=== PATIENT | male | born 1950 | race Asian ===

== ENCOUNTER 2022-05-11 11:58 | Inpatient (IN) | payer BC ==
[~2022-05-11] VITALS: Ht 167.6 cm; Wt 63.5 kg
[2022-05-11 12:06] VITALS: BP_SYST 101
[2022-05-11] MEDS ORDERED: D5/0.45 NS 1,000 ML IV ONE (12:15)
[2022-05-11 12:38] LABS: BASOPHILS # (AUTO) 0.1 K/uL (0.0-0.2); EOSINOPHILS # (AUTO) 0.1 K/uL (0.0-0.4); EOSINOPHILS % (AUTO) 2.2 % (0.0-4.0); HEMATOCRIT 32.9 % (36-54); HEMOGLOBIN 10.9 g/dL (14.0-18.0); LYMPHOCYTES # (AUTO) 0.9 K/uL (1.0-5.5); MEAN CORPUSCULAR HEMOGLOBIN 34 pg (27-31); MEAN CORPUSCULAR HGB CONC 33 % (32-36); MEAN CORPUSCULAR VOLUME 102 fL (79.0-98.0); MONOCYTES # (AUTO) 0.5 K/uL (0.0-1.0); MONOCYTES % (AUTO) 7.7 % (1.7-9.3); NEUTROPHILS # (AUTO) 4.5 K/uL (1.8-7.7); NEUTROPHILS % (AUTO) 74.1 % (40.0-70.0); PLATELET COUNT (AUTO) 58 K/uL (130-430); RED BLOOD CELL COUNT(AUTO) 3.23 MIL/uL (4.2-6.2); RED CELL DISTRIBUTION WIDTH 18.7 % (9.0-15.0); WHITE BLOOD COUNT (AUTO) 6.1 K/uL (4.8-10.8)
[2022-05-11 12:51] LABS: CALCIUM 8.7 mg/dL (8.4-11.0); CREATININE 5.46 mg/dL (0.55-1.30)
[2022-05-11 13:00] LABS: ALBUMIN 2.8 g/dL (3.4-4.8); TOTAL BILIRUBIN 1.7 mg/dL (0.0-1.0)
[2022-05-11 13:04] LABS: INR 1.3 (0.80-1.20); PROTHROMBIN TIME 13.8 SECS (9.5-12.5)
[2022-05-11] MEDS ORDERED: DEXTROSE 50% JECT 50 ML DISP.SYRIN IVP ONE (13:45)
[2022-05-11] MEDS: D10W 250 ML IV SCH (13:48)
[2022-05-11] MEDS ORDERED: D5W 1,000 ML IV PRN (14:00)
[2022-05-11] MEDS ORDERED: ONDANSETRON HCL 4 MG/2 ML VIAL IVP PRN (14:00)
[2022-05-11] MEDS ORDERED: BUPR-120 PO (15:25)
[2022-05-11] MEDS ORDERED: APIX2.5T PO (15:25)
[2022-05-11] MEDS ORDERED: LOPE2CAP PO (15:25)
[2022-05-11] MEDS ORDERED: LIP20 PO (15:25)
[2022-05-11] MEDS ORDERED: ASPI-1393 PO (15:25)
[2022-05-11] MEDS ORDERED: ALBMDI INH (15:25)
[2022-05-11] MEDS ORDERED: CARV12.548 PO (15:25)
[2022-05-11] MEDS ORDERED: ISOS30TA85 PO (15:25)
[2022-05-11] MEDS ORDERED: NITSL SL (15:25)
[2022-05-11] MEDS ORDERED: FURO80TA86 PO (15:25)
[2022-05-11] MEDS ORDERED: NEPH PO (15:25)
[2022-05-11] MEDS ORDERED: TRAZ-250 PO (15:25)
[2022-05-11] MEDS ORDERED: GLIP2.5T3 PO (15:25)
[2022-05-11] MEDS ORDERED: NEU300 PO (15:25)
[2022-05-11] MEDS ORDERED: FERR-69 PO (15:25)
[2022-05-11] MEDS ORDERED: MIDO10TA PO (15:25)
[2022-05-11 21:34] VITALS: BP_SYST 105
[2022-05-11] MEDS: GLUCOSE (DEXTROSE) ORAL GEL -Adults PO PRN (22:31)
[2022-05-11] MEDS: DEXTROSE 50% JECT 50 ML DISP.SYRIN IVP PRN (23:19)
[2022-05-12 00:10] VITALS: BP_SYST 110
[2022-05-12] MEDS: DEXTROSE 50% JECT 50 ML DISP.SYRIN IVP PRN (06:12)
[2022-05-12 07:16] LABS: BASOPHILS % (AUTO) 0.7 % (0.0-2.0); EOSINOPHILS # (AUTO) 0.2 K/uL (0.0-0.4); EOSINOPHILS % (AUTO) 2.4 % (0.0-4.0); HEMATOCRIT 31.1 % (36-54); HEMOGLOBIN 10.1 g/dL (14.0-18.0); LYMPHOCYTES # (AUTO) 0.8 K/uL (1.0-5.5); LYMPHOCYTES % (AUTO) 12.2 % (20.5-51.5); MEAN CORPUSCULAR HEMOGLOBIN 34 pg (27-31); MEAN CORPUSCULAR HGB CONC 33 % (32-36); MEAN CORPUSCULAR VOLUME 104 fL (79.0-98.0); MONOCYTES # (AUTO) 0.5 K/uL (0.0-1.0); MONOCYTES % (AUTO) 7.9 % (1.7-9.3); NEUTROPHILS # (AUTO) 5.1 K/uL (1.8-7.7); NEUTROPHILS % (AUTO) 76.8 % (40.0-70.0); RED CELL DISTRIBUTION WIDTH 18.9 % (9.0-15.0); WHITE BLOOD COUNT (AUTO) 6.6 K/uL (4.8-10.8)
[2022-05-12 07:48] LABS: ALBUMIN 2.4 g/dL (3.4-4.8); CALCIUM 7.8 mg/dL (8.4-11.0); CREATININE 5.57 mg/dL (0.55-1.30); TOTAL BILIRUBIN 1.5 mg/dL (0.0-1.0)
[2022-05-12 08:00] VITALS: BP_SYST 115; BP_SYST 87
[2022-05-12 08:06] LABS: FOLATE (FOLIC ACID) >20.0 ng/mL (>3.0)
[2022-05-12 11:21] VITALS: BP_SYST 88
[2022-05-12] MEDS ORDERED: FOLIC ACID 1 MG TABLET PO ONE (12:00)
[2022-05-12] MEDS: D10W 250 ML IV SCH ×2 (12:35→12:37)
[2022-05-12 12:54] VITALS: BP_SYST 88
[2022-05-12] MEDS ORDERED: NITROGLYCERIN 0.4 MG TAB.SUBL SL PRN (13:00)
[2022-05-12] MEDS ORDERED: LOPERAMIDE HCL 2 MG CAPSULE PO PRN (13:00)
[2022-05-12] MEDS ORDERED: DEXAMETHASONE 1 MG TABLET (DECADRON) PO ONE (13:00)
[2022-05-12] MEDS ORDERED: HEPARIN SODIUM,PORCINE 5,000 UNITS/ML VIAL SUBCUT ONE ×2 (14:30)
[2022-05-12 14:59] LABS: PLATELET COUNT (AUTO) 68 K/uL (130-430)
[2022-05-12] MEDS: D10W 1,000 ML IV SCH (14:59)
[2022-05-12] MEDS: MIDODRINE HCL 5 MG TABLET (PROAMATINE) PO SCH ×2 (15:00→21:04)
[2022-05-12 16:08] VITALS: BP_SYST 106
[2022-05-12] MEDS ORDERED: DEXTROSE 50% JECT 50 ML DISP.SYRIN IVP ONE (18:00)
[2022-05-12 20:00] VITALS: BP_SYST 100
[2022-05-12] MEDS ORDERED: DEXAMETHASONE 1 MG TABLET (DECADRON) PO SCH (21:00)
[2022-05-12] MEDS: glipiZIDE XL 2.5 MG/TAB (GLUCOTROL XL) PO SCH (21:00)
[2022-05-12] MEDS: traZODone HCL 50 MG TABLET (DESYREL) PO SCH (21:04)
[2022-05-12] MEDS: FERROUS SULFATE 325 MG TABLET.DR PO SCH (21:04)
[2022-05-12] MEDS: DEXAMETHASONE SOD PHOSPHATE 4 MG/ML VIAL IVP SCH (21:04)
[2022-05-12] MEDS: CARVEDILOL 12.5 MG TABLET (COREG) PO SCH (21:05)
[2022-05-12] MEDS: GABAPENTIN 300 MG CAPSULE PO SCH (21:05)
[2022-05-12] MEDS: ATORVASTATIN 20 MG TABLET PO SCH (21:05)
[2022-05-12] MEDS: buPROPion HCL 150 MG XL TAB PO SCH (21:05)
[2022-05-13 00:22] VITALS: BP_SYST 131; BP_SYST 99
[2022-05-13 07:09] LABS: BASOPHILS % (AUTO) 0.3 % (0.0-2.0); EOSINOPHILS % (AUTO) 0.1 % (0.0-4.0); HEMATOCRIT 34.1 % (36-54); HEMOGLOBIN 11.3 g/dL (14.0-18.0); LYMPHOCYTES # (AUTO) 0.4 K/uL (1.0-5.5); LYMPHOCYTES % (AUTO) 4.1 % (20.5-51.5); MEAN CORPUSCULAR HEMOGLOBIN 34 pg (27-31); MEAN CORPUSCULAR HGB CONC 33 % (32-36); MEAN CORPUSCULAR VOLUME 102 fL (79.0-98.0); MONOCYTES # (AUTO) 0.2 K/uL (0.0-1.0); MONOCYTES % (AUTO) 2.1 % (1.7-9.3); NEUTROPHILS # (AUTO) 8.2 K/uL (1.8-7.7); NEUTROPHILS % (AUTO) 93.4 % (40.0-70.0); PLATELET COUNT (AUTO) 69 K/uL (130-430); RED BLOOD CELL COUNT(AUTO) 3.34 MIL/uL (4.2-6.2); RED CELL DISTRIBUTION WIDTH 18.9 % (9.0-15.0); WHITE BLOOD COUNT (AUTO) 8.8 K/uL (4.8-10.8)
[2022-05-13 07:30] LABS: TOTAL IRON BIND. CAPACITY 171 ug/dL (250-450)
[2022-05-13 07:52] LABS: CALCIUM 8.6 mg/dL (8.4-11.0); CREATININE 4.46 mg/dL (0.55-1.30)
[2022-05-13 08:36] VITALS: BP_SYST 143
[2022-05-13] MEDS: GABAPENTIN 300 MG CAPSULE PO SCH ×2 (10:25→21:06)
[2022-05-13] MEDS: FUROSEMIDE 80 MG TABLET PO SCH (10:27)
[2022-05-13] MEDS: ISOSORBIDE MONONITRATE 30 MG TAB.ER.24H PO SCH (10:27)
[2022-05-13] MEDS: MIDODRINE HCL 5 MG TABLET (PROAMATINE) PO SCH ×3 (10:28→21:06)
[2022-05-13] MEDS: FOLIC ACID 1 MG TABLET PO SCH (10:28)
[2022-05-13] MEDS: FERROUS SULFATE 325 MG TABLET.DR PO SCH ×2 (10:28→21:06)
[2022-05-13] MEDS: CARVEDILOL 12.5 MG TABLET (COREG) PO SCH ×2 (10:29→21:05)
[2022-05-13] MEDS: buPROPion HCL 150 MG XL TAB PO SCH ×2 (10:29→21:06)
[2022-05-13] MEDS: DEXAMETHASONE SOD PHOSPHATE 4 MG/ML VIAL IVP SCH ×2 (10:30→21:05)
[2022-05-13] MEDS: glipiZIDE XL 2.5 MG/TAB (GLUCOTROL XL) PO SCH ×2 (11:07→21:00)
[2022-05-13] MEDS: NEPHROVITE, (FOLIC ACID/VITAMIN B COMP W-C 1 TAB) PO SCH (11:12)
[2022-05-13 12:05] VITALS: BP_SYST 95
[2022-05-13] MEDS: ALBUTEROL SULFATE 0.083% 2.5 MG/3 ML VIAL.NEB INH SCH ×2 (15:00→23:21)
[2022-05-13] MEDS: D10W 1,000 ML IV SCH (19:00)
[2022-05-13 20:00] VITALS: BP_SYST 144
[2022-05-13] MEDS: traZODone HCL 50 MG TABLET (DESYREL) PO SCH (21:06)
[2022-05-13] MEDS: ATORVASTATIN 20 MG TABLET PO SCH (21:06)
[2022-05-14] VITALS: BP_SYST 122
[2022-05-14] MEDS ORDERED: NS 250 ML IV ONE
[2022-05-14 02:45] LABS: BASOPHILS % (AUTO) 0.2 % (0.0-2.0); HEMOGLOBIN 9.9 g/dL (14.0-18.0); LYMPHOCYTES # (AUTO) 0.4 K/uL (1.0-5.5); LYMPHOCYTES % (AUTO) 3.6 % (20.5-51.5); MEAN CORPUSCULAR HEMOGLOBIN 34 pg (27-31); MEAN CORPUSCULAR HGB CONC 33 % (32-36); MEAN CORPUSCULAR VOLUME 102 fL (79.0-98.0); MONOCYTES # (AUTO) 0.4 K/uL (0.0-1.0); NEUTROPHILS # (AUTO) 10.1 K/uL (1.8-7.7); NEUTROPHILS % (AUTO) 92.2 % (40.0-70.0); PLATELET COUNT (AUTO) 78 K/uL (130-430); RED BLOOD CELL COUNT(AUTO) 2.93 MIL/uL (4.2-6.2); RED CELL DISTRIBUTION WIDTH 18.7 % (9.0-15.0); WHITE BLOOD COUNT (AUTO) 10.9 K/uL (4.8-10.8)
[2022-05-14 07:28] LABS: BASOPHILS % (AUTO) 0.1 % (0.0-2.0); HEMATOCRIT 32.6 % (36-54); HEMOGLOBIN 10.6 g/dL (14.0-18.0); LYMPHOCYTES # (AUTO) 0.5 K/uL (1.0-5.5); LYMPHOCYTES % (AUTO) 4.6 % (20.5-51.5); MEAN CORPUSCULAR HEMOGLOBIN 33 pg (27-31); MEAN CORPUSCULAR HGB CONC 33 % (32-36); MEAN CORPUSCULAR VOLUME 103 fL (79.0-98.0); MONOCYTES # (AUTO) 0.4 K/uL (0.0-1.0); MONOCYTES % (AUTO) 3.1 % (1.7-9.3); NEUTROPHILS # (AUTO) 10.8 K/uL (1.8-7.7); NEUTROPHILS % (AUTO) 92.2 % (40.0-70.0); PLATELET COUNT (AUTO) 83 K/uL (130-430); RED BLOOD CELL COUNT(AUTO) 3.17 MIL/uL (4.2-6.2); RED CELL DISTRIBUTION WIDTH 19.3 % (9.0-15.0); WHITE BLOOD COUNT (AUTO) 11.7 K/uL (4.8-10.8)
[2022-05-14] MEDS: ALBUTEROL SULFATE 0.083% 2.5 MG/3 ML VIAL.NEB INH SCH ×4 (08:01→20:10)
[2022-05-14 08:45] VITALS: BP_SYST 97
[2022-05-14] MEDS: DEXAMETHASONE SOD PHOSPHATE 4 MG/ML VIAL IVP SCH ×2 (10:24→21:56)
[2022-05-14] MEDS: FOLIC ACID 1 MG TABLET PO SCH (10:26)
[2022-05-14] MEDS: CARVEDILOL 12.5 MG TABLET (COREG) PO SCH ×2 (10:26→21:57)
[2022-05-14] MEDS: MIDODRINE HCL 5 MG TABLET (PROAMATINE) PO SCH ×3 (10:27→21:59)
[2022-05-14] MEDS: FUROSEMIDE 80 MG TABLET PO SCH (10:27)
[2022-05-14] MEDS: ISOSORBIDE MONONITRATE 30 MG TAB.ER.24H PO SCH (10:28)
[2022-05-14] MEDS: NEPHROVITE, (FOLIC ACID/VITAMIN B COMP W-C 1 TAB) PO SCH (10:28)
[2022-05-14] MEDS: FERROUS SULFATE 325 MG TABLET.DR PO SCH (10:29)
[2022-05-14] MEDS: GABAPENTIN 300 MG CAPSULE PO SCH ×2 (10:32→21:59)
[2022-05-14] MEDS: buPROPion HCL 150 MG XL TAB PO SCH ×3 (11:24→22:07)
[2022-05-14] MEDS: glipiZIDE XL 2.5 MG/TAB (GLUCOTROL XL) PO SCH ×2 (11:28→21:58)
[2022-05-14] MEDS: IPRATROPIUM/ALBUTEROL SULFATE 3 ML AMPUL.NEB (DUONEB) INH PRN (11:42)
[2022-05-14 12:30] VITALS: BP_SYST 113
[2022-05-14 16:25] VITALS: BP_SYST 110
[2022-05-14 20:00] VITALS: BP_SYST 101
[2022-05-14] MEDS: traZODone HCL 50 MG TABLET (DESYREL) PO SCH (21:00)
[2022-05-14] MEDS: ATORVASTATIN 20 MG TABLET PO SCH (21:58)
[2022-05-15 01:26] VITALS: BP_SYST 101
[2022-05-15] MEDS: ALBUTEROL SULFATE 0.083% 2.5 MG/3 ML VIAL.NEB INH SCH ×3 (07:49→15:35)
[2022-05-15 08:00] VITALS: BP_SYST 101
[2022-05-15 09:44] LABS: BASOPHILS % (AUTO) 0.1 % (0.0-2.0); HEMATOCRIT 30.9 % (36-54); LYMPHOCYTES # (AUTO) 0.5 K/uL (1.0-5.5); LYMPHOCYTES % (AUTO) 3.8 % (20.5-51.5); MEAN CORPUSCULAR HEMOGLOBIN 33 pg (27-31); MEAN CORPUSCULAR HGB CONC 32 % (32-36); MEAN CORPUSCULAR VOLUME 103 fL (79.0-98.0); MONOCYTES # (AUTO) 0.4 K/uL (0.0-1.0); NEUTROPHILS # (AUTO) 11.5 K/uL (1.8-7.7); NEUTROPHILS % (AUTO) 93.1 % (40.0-70.0); PLATELET COUNT (AUTO) 79 K/uL (130-430); RED BLOOD CELL COUNT(AUTO) 3.01 MIL/uL (4.2-6.2); RED CELL DISTRIBUTION WIDTH 19.2 % (9.0-15.0); WHITE BLOOD COUNT (AUTO) 12.3 K/uL (4.8-10.8)
[2022-05-15 10:06] LABS: CALCIUM 8.2 mg/dL (8.4-11.0); CREATININE 4.55 mg/dL (0.55-1.30)
[2022-05-15] MEDS: NEPHROVITE, (FOLIC ACID/VITAMIN B COMP W-C 1 TAB) PO SCH (10:39)
[2022-05-15] MEDS: MIDODRINE HCL 5 MG TABLET (PROAMATINE) PO SCH ×3 (10:39→21:57)
[2022-05-15] MEDS: ISOSORBIDE MONONITRATE 30 MG TAB.ER.24H PO SCH (10:39)
[2022-05-15] MEDS: FUROSEMIDE 80 MG TABLET PO SCH (10:40)
[2022-05-15] MEDS: GABAPENTIN 300 MG CAPSULE PO SCH (10:40)
[2022-05-15] MEDS: CARVEDILOL 12.5 MG TABLET (COREG) PO SCH ×2 (10:40→21:58)
[2022-05-15] MEDS: FOLIC ACID 1 MG TABLET PO SCH (10:40)
[2022-05-15] MEDS: DEXAMETHASONE SOD PHOSPHATE 4 MG/ML VIAL IVP SCH (10:41)
[2022-05-15] MEDS: glipiZIDE XL 2.5 MG/TAB (GLUCOTROL XL) PO SCH ×2 (10:47→22:01)
[2022-05-15] MEDS: buPROPion HCL 150 MG XL TAB PO SCH ×2 (10:48→21:57)
[2022-05-15] MEDS ORDERED: NS 250 ML IV.SOLN IV ONE (11:00)
[2022-05-15] MEDS ORDERED: LR 1,000 ML IV.SOLN IV ONE (11:00)
[2022-05-15 12:00] VITALS: BP_SYST 90
[2022-05-15 16:52] VITALS: BP_SYST 98
[2022-05-15 17:46] VITALS: BP_SYST 98
[2022-05-15] MEDS: ATORVASTATIN 20 MG TABLET PO SCH (21:57)
[2022-05-15] MEDS: traZODone HCL 50 MG TABLET (DESYREL) PO SCH (21:57)
[2022-05-16 00:36] VITALS: BP_SYST 102
[2022-05-16] MEDS: ALBUTEROL SULFATE 0.083% 2.5 MG/3 ML VIAL.NEB INH SCH ×4 (07:00→19:00)
[2022-05-16 07:38] LABS: BASOPHILS % (AUTO) 0.2 % (0.0-2.0); HEMATOCRIT 32.3 % (36-54); HEMOGLOBIN 10.5 g/dL (14.0-18.0); LYMPHOCYTES # (AUTO) 0.6 K/uL (1.0-5.5); LYMPHOCYTES % (AUTO) 4.7 % (20.5-51.5); MEAN CORPUSCULAR HEMOGLOBIN 34 pg (27-31); MEAN CORPUSCULAR HGB CONC 32 % (32-36); MEAN CORPUSCULAR VOLUME 103 fL (79.0-98.0); MONOCYTES # (AUTO) 0.5 K/uL (0.0-1.0); MONOCYTES % (AUTO) 4.2 % (1.7-9.3); NEUTROPHILS # (AUTO) 10.8 K/uL (1.8-7.7); NEUTROPHILS % (AUTO) 90.9 % (40.0-70.0); PLATELET COUNT (AUTO) 79 K/uL (130-430); RED BLOOD CELL COUNT(AUTO) 3.12 MIL/uL (4.2-6.2); RED CELL DISTRIBUTION WIDTH 19.5 % (9.0-15.0); WHITE BLOOD COUNT (AUTO) 11.9 K/uL (4.8-10.8)
[2022-05-16 07:47] LABS: C-REACTIVE PROTEIN QUANT 2.6 mg/dL (0-0.5); CREATININE 3.9 mg/dL (0.55-1.30)
[2022-05-16 08:00] VITALS: BP_SYST 97
[2022-05-16] MEDS: CARVEDILOL 12.5 MG TABLET (COREG) PO SCH ×2 (09:00→21:00)
[2022-05-16] MEDS: ISOSORBIDE MONONITRATE 30 MG TAB.ER.24H PO SCH (11:09)
[2022-05-16] MEDS: glipiZIDE XL 2.5 MG/TAB (GLUCOTROL XL) PO SCH ×2 (11:09→21:00)
[2022-05-16] MEDS: NEPHROVITE, (FOLIC ACID/VITAMIN B COMP W-C 1 TAB) PO SCH (11:09)
[2022-05-16] MEDS: FUROSEMIDE 80 MG TABLET PO SCH (11:09)
[2022-05-16] MEDS: buPROPion HCL 150 MG XL TAB PO SCH ×2 (11:09→20:15)
[2022-05-16] MEDS: FOLIC ACID 1 MG TABLET PO SCH (11:09)
[2022-05-16] MEDS: MIDODRINE HCL 5 MG TABLET (PROAMATINE) PO SCH ×3 (11:09→20:14)
[2022-05-16 11:18] VITALS: BP_SYST 101
[2022-05-16 11:43] LABS: ERYTHROCYTE SEDIMENTATION RATE 36 MM/HR (0-15)
[2022-05-16 16:45] VITALS: BP_SYST 90
[2022-05-16 20:00] VITALS: BP_SYST 107
[2022-05-16] MEDS: ATORVASTATIN 20 MG TABLET PO SCH (20:15)
[2022-05-16] MEDS: traZODone HCL 50 MG TABLET (DESYREL) PO SCH (21:00)
[2022-05-17 01:56] VITALS: BP_SYST 82
[2022-05-17 02:37] VITALS: BP_SYST 94
[2022-05-17] MEDS: ALBUTEROL SULFATE 0.083% 2.5 MG/3 ML VIAL.NEB INH SCH ×4 (07:00→19:29)
[2022-05-17 08:00] VITALS: BP_SYST 101
[2022-05-17] MEDS: MIDODRINE HCL 5 MG TABLET (PROAMATINE) PO SCH ×3 (09:00→21:14)
[2022-05-17] MEDS: ISOSORBIDE MONONITRATE 30 MG TAB.ER.24H PO SCH (09:00)
[2022-05-17] MEDS: NEPHROVITE, (FOLIC ACID/VITAMIN B COMP W-C 1 TAB) PO SCH (09:00)
[2022-05-17] MEDS: glipiZIDE XL 2.5 MG/TAB (GLUCOTROL XL) PO SCH ×2 (09:00→21:00)
[2022-05-17] MEDS: FUROSEMIDE 80 MG TABLET PO SCH (09:00)
[2022-05-17] MEDS: FOLIC ACID 1 MG TABLET PO SCH (09:00)
[2022-05-17] MEDS: CARVEDILOL 12.5 MG TABLET (COREG) PO SCH ×2 (09:00→21:00)
[2022-05-17] MEDS: buPROPion HCL 150 MG XL TAB PO SCH ×2 (09:00→21:00)
[2022-05-17 12:00] VITALS: BP_SYST 92
[2022-05-17 16:04] VITALS: BP_SYST 92
[2022-05-17 20:00] VITALS: BP_SYST 98
[2022-05-17] MEDS: ATORVASTATIN 20 MG TABLET PO SCH (21:14)
[2022-05-17] MEDS: traZODone HCL 50 MG TABLET (DESYREL) PO SCH (21:15)
[2022-05-18 01:13] VITALS: BP_SYST 86
[2022-05-18 06:18] LABS: BASOPHILS % (AUTO) 0.1 % (0.0-2.0); EOSINOPHILS # (AUTO) 0.1 K/uL (0.0-0.4); EOSINOPHILS % (AUTO) 1.6 % (0.0-4.0); HEMATOCRIT 31.6 % (36-54); HEMOGLOBIN 10.4 g/dL (14.0-18.0); LYMPHOCYTES # (AUTO) 0.7 K/uL (1.0-5.5); MEAN CORPUSCULAR HEMOGLOBIN 34 pg (27-31); MEAN CORPUSCULAR HGB CONC 33 % (32-36); MEAN CORPUSCULAR VOLUME 104 fL (79.0-98.0); MONOCYTES # (AUTO) 0.6 K/uL (0.0-1.0); MONOCYTES % (AUTO) 7.4 % (1.7-9.3); NEUTROPHILS # (AUTO) 6.7 K/uL (1.8-7.7); NEUTROPHILS % (AUTO) 81.9 % (40.0-70.0); PLATELET COUNT (AUTO) 64 K/uL (130-430); RED BLOOD CELL COUNT(AUTO) 3.05 MIL/uL (4.2-6.2); RED CELL DISTRIBUTION WIDTH 19.9 % (9.0-15.0); WHITE BLOOD COUNT (AUTO) 8.2 K/uL (4.8-10.8)
[2022-05-18 06:39] LABS: ALBUMIN 2.6 g/dL (3.4-4.8); C-REACTIVE PROTEIN QUANT 6.3 mg/dL (0-0.5); CALCIUM 8.1 mg/dL (8.4-11.0); CREATININE 5.98 mg/dL (0.55-1.30); PHOSPHORUS 6.7 mg/dL (2.7-4.5); TOTAL BILIRUBIN 2.1 mg/dL (0.0-1.0)
[2022-05-18] MEDS: ALBUTEROL SULFATE 0.083% 2.5 MG/3 ML VIAL.NEB INH SCH ×4 (07:48→19:46)
[2022-05-18 07:55] VITALS: BP_SYST 112
[2022-05-18 08:15] LABS: ERYTHROCYTE SEDIMENTATION RATE 42 MM/HR (0-15)
[2022-05-18 08:30] VITALS: BP_SYST 112
[2022-05-18] MEDS: ISOSORBIDE MONONITRATE 30 MG TAB.ER.24H PO SCH (09:00)
[2022-05-18] MEDS: glipiZIDE XL 2.5 MG/TAB (GLUCOTROL XL) PO SCH (09:00)
[2022-05-18] MEDS: FUROSEMIDE 80 MG TABLET PO SCH (09:00)
[2022-05-18] MEDS: buPROPion HCL 150 MG XL TAB PO SCH ×2 (09:00→21:14)
[2022-05-18] MEDS: MIDODRINE HCL 5 MG TABLET (PROAMATINE) PO SCH ×3 (09:00→21:14)
[2022-05-18] MEDS: NEPHROVITE, (FOLIC ACID/VITAMIN B COMP W-C 1 TAB) PO SCH (09:00)
[2022-05-18] MEDS: FOLIC ACID 1 MG TABLET PO SCH (09:12)
[2022-05-18] MEDS: CARVEDILOL 12.5 MG TABLET (COREG) PO SCH ×2 (09:13→21:00)
[2022-05-18 11:45] VITALS: BP_SYST 95
[2022-05-18 12:22] VITALS: BP_SYST 96
[2022-05-18 16:31] VITALS: BP_SYST 103
[2022-05-18 17:04] LABS: BILIRUBIN,URINE NEGATIVE (NEGATIVE); BLOOD, URINE 1+ (NEGATIVE); GLUCOSE,URINE TRACE (NEGATIVE); KETONES,URINE NEGATIVE (NEGATIVE); NITRITE, URINE NEGATIVE (NEGATIVE); PH,URINE 5.5 (5.0-8.0); PROTEIN URINE TRACE (NEGATIVE); UROBILINOGEN,URINE 0.2 (0.2-1.0)
[2022-05-18] MEDS: SEVELAMER CARBONATE 800 MG TABLET PO SCH (17:12)
[2022-05-18 17:15] LABS: CLARITY/URINE SLIGHTLY HAZY (CLEAR); COLOR,URINE AMBER (YELLOW); LEUKOCYTE ESTERASE ,URINE TRACE (NEGATIVE)
[2022-05-18 17:16] LABS: BACTERIA,URINE FEW /HPF (None Seen); MUCUS,URINE None Seen /LPF (None Seen); RBC,URINE 0-3 /HPF (0-3)
[2022-05-18] MEDS: ATORVASTATIN 20 MG TABLET PO SCH (21:13)
[2022-05-18] MEDS: traZODone HCL 50 MG TABLET (DESYREL) PO SCH (21:13)
[2022-05-18] MEDS: FERROUS SULFATE 325 MG TABLET.DR PO SCH (21:14)
[2022-05-19 01:21] VITALS: BP_SYST 90
[2022-05-19 06:57] LABS: BASOPHILS % (AUTO) 0.1 % (0.0-2.0); EOSINOPHILS # (AUTO) 0.2 K/uL (0.0-0.4); EOSINOPHILS % (AUTO) 1.9 % (0.0-4.0); HEMATOCRIT 32.2 % (36-54); HEMOGLOBIN 10.7 g/dL (14.0-18.0); LYMPHOCYTES # (AUTO) 0.7 K/uL (1.0-5.5); LYMPHOCYTES % (AUTO) 6.6 % (20.5-51.5); MEAN CORPUSCULAR HEMOGLOBIN 34 pg (27-31); MEAN CORPUSCULAR HGB CONC 33 % (32-36); MEAN CORPUSCULAR VOLUME 104 fL (79.0-98.0); MONOCYTES # (AUTO) 0.6 K/uL (0.0-1.0); MONOCYTES % (AUTO) 6.4 % (1.7-9.3); NEUTROPHILS # (AUTO) 8.5 K/uL (1.8-7.7); PLATELET COUNT (AUTO) 61 K/uL (130-430); RED BLOOD CELL COUNT(AUTO) 3.11 MIL/uL (4.2-6.2); RED CELL DISTRIBUTION WIDTH 19.8 % (9.0-15.0)
[2022-05-19 06:59] LABS: ALBUMIN 2.4 g/dL (3.4-4.8); CALCIUM 7.8 mg/dL (8.4-11.0); CREATININE 4.92 mg/dL (0.55-1.30); PHOSPHORUS 4.8 mg/dL (2.7-4.5); TOTAL BILIRUBIN 2.1 mg/dL (0.0-1.0)
[2022-05-19] MEDS: ALBUTEROL SULFATE 0.083% 2.5 MG/3 ML VIAL.NEB INH SCH ×4 (07:44→20:05)
[2022-05-19] MEDS: SEVELAMER CARBONATE 800 MG TABLET PO SCH ×3 (08:00→17:59)
[2022-05-19 08:02] VITALS: BP_SYST 103
[2022-05-19] MEDS: buPROPion HCL 150 MG XL TAB PO SCH ×2 (09:00→21:02)
[2022-05-19] MEDS: ISOSORBIDE MONONITRATE 30 MG TAB.ER.24H PO SCH (09:00)
[2022-05-19] MEDS: FERROUS SULFATE 325 MG TABLET.DR PO SCH ×2 (09:00→21:03)
[2022-05-19] MEDS: CARVEDILOL 12.5 MG TABLET (COREG) PO SCH ×2 (09:00→21:00)
[2022-05-19] MEDS: NEPHROVITE, (FOLIC ACID/VITAMIN B COMP W-C 1 TAB) PO SCH (09:00)
[2022-05-19] MEDS: FUROSEMIDE 80 MG TABLET PO SCH (09:00)
[2022-05-19] MEDS: FOLIC ACID 1 MG TABLET PO SCH (09:00)
[2022-05-19] MEDS: MIDODRINE HCL 5 MG TABLET (PROAMATINE) PO SCH ×3 (09:00→21:02)
[2022-05-19 12:04] LABS: ERYTHROCYTE SEDIMENTATION RATE 43 MM/HR (0-15)
[2022-05-19] MEDS ORDERED: NS 1000 ML IV.SOLN IV ONE (12:49)
[2022-05-19] MEDS ORDERED: BUPIVACAINE /EPINEPHRINE/PF 0.5% 30 ML VIAL INJ ONE (12:49)
[2022-05-19] MEDS ORDERED: CLINDAMYCIN PHOSPHATE 600 mg/50mL D5W IV ONE (12:49)
[2022-05-19] MEDS ORDERED: NS 250 ML IV.SOLN IV ONE (12:49)
[2022-05-19] MEDS ORDERED: SEVOFLURANE 15 MIN GAS INH ONE (12:49)
[2022-05-19] MEDS ORDERED: ONDANSETRON HCL 4 MG/2 ML VIAL IVP PRN (13:45)
[2022-05-19 14:51] VITALS: BP_SYST 112
[2022-05-19 15:20] VITALS: BP_SYST 112
[2022-05-19] MEDS: DEXTROSE 50% JECT 50 ML DISP.SYRIN IVP PRN (17:41)
[2022-05-19 20:00] VITALS: BP_SYST 93
[2022-05-19] MEDS: ATORVASTATIN 20 MG TABLET PO SCH (21:02)
[2022-05-19] MEDS: traZODone HCL 50 MG TABLET (DESYREL) PO SCH (21:05)
[2022-05-20] VITALS (8 sets, daily range): BP systolic 96–119
[2022-05-20] MEDS: ALBUTEROL SULFATE 0.083% 2.5 MG/3 ML VIAL.NEB INH SCH ×4 (07:07→19:52)
[2022-05-20] MEDS: FUROSEMIDE 80 MG TABLET PO SCH (09:00)
[2022-05-20] MEDS: ISOSORBIDE MONONITRATE 30 MG TAB.ER.24H PO SCH (09:00)
[2022-05-20] MEDS: CARVEDILOL 12.5 MG TABLET (COREG) PO SCH ×2 (09:00→21:00)
[2022-05-20] MEDS: MIDODRINE HCL 5 MG TABLET (PROAMATINE) PO SCH ×3 (10:49→21:14)
[2022-05-20] MEDS: FOLIC ACID 1 MG TABLET PO SCH (10:50)
[2022-05-20] MEDS: buPROPion HCL 150 MG XL TAB PO SCH ×2 (10:50→21:14)
[2022-05-20] MEDS: NEPHROVITE, (FOLIC ACID/VITAMIN B COMP W-C 1 TAB) PO SCH (10:50)
[2022-05-20] MEDS: FERROUS SULFATE 325 MG TABLET.DR PO SCH ×2 (10:50→21:14)
[2022-05-20] MEDS ORDERED: HEPARIN SODIUM,PORCINE 5,000 UNITS/ML VIAL MC ONE ×2 (11:45→12:00)
[2022-05-20] MEDS: SEVELAMER CARBONATE 800 MG TABLET PO SCH ×2 (12:41→18:08)
[2022-05-20] MEDS ORDERED: SEVE800T8 PO (13:35)
[2022-05-20] MEDS: ATORVASTATIN 20 MG TABLET PO SCH (21:14)
[2022-05-20] MEDS: traZODone HCL 50 MG TABLET (DESYREL) PO SCH (21:14)
[2022-05-21 01:57] VITALS: BP_SYST 112
[2022-05-21 06:27] LABS: BASOPHILS % (AUTO) 0.1 % (0.0-2.0); EOSINOPHILS # (AUTO) 0.2 K/uL (0.0-0.4); EOSINOPHILS % (AUTO) 1.9 % (0.0-4.0); HEMATOCRIT 31.3 % (36-54); HEMOGLOBIN 10.2 g/dL (14.0-18.0); LYMPHOCYTES # (AUTO) 0.7 K/uL (1.0-5.5); MEAN CORPUSCULAR HEMOGLOBIN 34 pg (27-31); MEAN CORPUSCULAR HGB CONC 33 % (32-36); MEAN CORPUSCULAR VOLUME 105 fL (79.0-98.0); MONOCYTES # (AUTO) 1.1 K/uL (0.0-1.0); MONOCYTES % (AUTO) 8.6 % (1.7-9.3); NEUTROPHILS # (AUTO) 10.2 K/uL (1.8-7.7); NEUTROPHILS % (AUTO) 83.4 % (40.0-70.0); PLATELET COUNT (AUTO) 51 K/uL (130-430); RED BLOOD CELL COUNT(AUTO) 2.98 MIL/uL (4.2-6.2); RED CELL DISTRIBUTION WIDTH 22.4 % (9.0-15.0); WHITE BLOOD COUNT (AUTO) 12.2 K/uL (4.8-10.8)
[2022-05-21 06:45] LABS: ALBUMIN 2.3 g/dL (3.4-4.8); CREATININE 4.29 mg/dL (0.55-1.30); PHOSPHORUS 4.3 mg/dL (2.7-4.5)
[2022-05-21] MEDS: ALBUTEROL SULFATE 0.083% 2.5 MG/3 ML VIAL.NEB INH SCH ×4 (07:37→20:10)
[2022-05-21 08:06] VITALS: BP_SYST 139
[2022-05-21] MEDS: FERROUS SULFATE 325 MG TABLET.DR PO SCH ×2 (08:30→20:47)
[2022-05-21] MEDS: MIDODRINE HCL 5 MG TABLET (PROAMATINE) PO SCH ×3 (08:31→20:46)
[2022-05-21] MEDS: ISOSORBIDE MONONITRATE 30 MG TAB.ER.24H PO SCH (08:31)
[2022-05-21] MEDS: SEVELAMER CARBONATE 800 MG TABLET PO SCH ×3 (08:31→18:08)
[2022-05-21] MEDS: buPROPion HCL 150 MG XL TAB PO SCH ×2 (08:31→22:19)
[2022-05-21] MEDS: NEPHROVITE, (FOLIC ACID/VITAMIN B COMP W-C 1 TAB) PO SCH (08:31)
[2022-05-21] MEDS: FOLIC ACID 1 MG TABLET PO SCH (08:31)
[2022-05-21] MEDS: CARVEDILOL 12.5 MG TABLET (COREG) PO SCH ×2 (08:32→20:46)
[2022-05-21] MEDS: FUROSEMIDE 80 MG TABLET PO SCH (08:32)
[2022-05-21 08:41] VITALS: BP_SYST 139
[2022-05-21 14:01] VITALS: BP_SYST 111
[2022-05-21 18:00] VITALS: BP_SYST 94
[2022-05-21 20:00] VITALS: BP_SYST 102
[2022-05-21] MEDS: traZODone HCL 50 MG TABLET (DESYREL) PO SCH (20:46)
[2022-05-21] MEDS: ATORVASTATIN 20 MG TABLET PO SCH (20:47)
[2022-05-22] VITALS: BP_SYST 95
[2022-05-22 04:00] VITALS: BP_SYST 104
[2022-05-22] MEDS: ALBUTEROL SULFATE 0.083% 2.5 MG/3 ML VIAL.NEB INH SCH ×4 (07:13→20:05)
[2022-05-22 07:32] VITALS: BP_SYST 108
[2022-05-22] MEDS: SEVELAMER CARBONATE 800 MG TABLET PO SCH ×3 (08:50→18:12)
[2022-05-22] MEDS: FERROUS SULFATE 325 MG TABLET.DR PO SCH ×2 (08:50→23:54)
[2022-05-22] MEDS: CARVEDILOL 12.5 MG TABLET (COREG) PO SCH ×2 (08:51→23:52)
[2022-05-22] MEDS: FOLIC ACID 1 MG TABLET PO SCH (08:51)
[2022-05-22] MEDS: NEPHROVITE, (FOLIC ACID/VITAMIN B COMP W-C 1 TAB) PO SCH (08:51)
[2022-05-22] MEDS: MIDODRINE HCL 5 MG TABLET (PROAMATINE) PO SCH ×3 (08:51→23:49)
[2022-05-22] MEDS: buPROPion HCL 150 MG XL TAB PO SCH ×2 (08:51→23:53)
[2022-05-22] MEDS: ISOSORBIDE MONONITRATE 30 MG TAB.ER.24H PO SCH (08:52)
[2022-05-22] MEDS: FUROSEMIDE 80 MG TABLET PO SCH (08:52)
[2022-05-22 09:11] LABS: BASOPHILS # (AUTO) 0.1 K/uL (0.0-0.2); BASOPHILS % (AUTO) 0.6 % (0.0-2.0); EOSINOPHILS # (AUTO) 0.1 K/uL (0.0-0.4); EOSINOPHILS % (AUTO) 1.4 % (0.0-4.0); HEMATOCRIT 32.4 % (36-54); HEMOGLOBIN 10.7 g/dL (14.0-18.0); LYMPHOCYTES # (AUTO) 0.7 K/uL (1.0-5.5); LYMPHOCYTES % (AUTO) 6.7 % (20.5-51.5); MEAN CORPUSCULAR HEMOGLOBIN 34 pg (27-31); MEAN CORPUSCULAR HGB CONC 33 % (32-36); MEAN CORPUSCULAR VOLUME 103 fL (79.0-98.0); MONOCYTES # (AUTO) 0.7 K/uL (0.0-1.0); MONOCYTES % (AUTO) 6.9 % (1.7-9.3); NEUTROPHILS % (AUTO) 84.4 % (40.0-70.0); PLATELET COUNT (AUTO) 51 K/uL (130-430); RED BLOOD CELL COUNT(AUTO) 3.13 MIL/uL (4.2-6.2); RED CELL DISTRIBUTION WIDTH 22.2 % (9.0-15.0); WHITE BLOOD COUNT (AUTO) 10.6 K/uL (4.8-10.8)
[2022-05-22] MEDS ORDERED: ALBUMIN HUMAN 25% 100 ML IV ONE (10:30)
[2022-05-22] MEDS ORDERED: ALTEPLASE 2 MG VIAL MC ONE (11:45)
[2022-05-22 11:54] VITALS: BP_SYST 94
[2022-05-22 18:23] VITALS: BP_SYST 103
[2022-05-22 20:00] VITALS: BP_SYST 113
[2022-05-22] MEDS: ATORVASTATIN 20 MG TABLET PO SCH (23:53)
[2022-05-22] MEDS: traZODone HCL 50 MG TABLET (DESYREL) PO SCH (23:54)
[2022-05-23] MEDS: ALBUTEROL SULFATE 0.083% 2.5 MG/3 ML VIAL.NEB INH SCH ×4 (07:20→19:04)
[2022-05-23 08:03] VITALS: BP_SYST 108
[2022-05-23] MEDS: ISOSORBIDE MONONITRATE 30 MG TAB.ER.24H PO SCH (09:52)
[2022-05-23] MEDS: buPROPion HCL 150 MG XL TAB PO SCH ×2 (09:52→21:17)
[2022-05-23] MEDS: CARVEDILOL 12.5 MG TABLET (COREG) PO SCH ×2 (09:53→21:17)
[2022-05-23] MEDS: MIDODRINE HCL 5 MG TABLET (PROAMATINE) PO SCH ×3 (09:53→21:17)
[2022-05-23] MEDS: FUROSEMIDE 80 MG TABLET PO SCH (09:53)
[2022-05-23] MEDS: NEPHROVITE, (FOLIC ACID/VITAMIN B COMP W-C 1 TAB) PO SCH (09:56)
[2022-05-23] MEDS: FOLIC ACID 1 MG TABLET PO SCH (09:56)
[2022-05-23] MEDS: SEVELAMER CARBONATE 800 MG TABLET PO SCH ×3 (09:56→19:11)
[2022-05-23] MEDS: FERROUS SULFATE 325 MG TABLET.DR PO SCH ×2 (09:56→21:17)
[2022-05-23 10:50] VITALS: BP_SYST 139
[2022-05-23 12:22] LABS: HEMOGLOBIN 10.6 g/dL (14.0-18.0); MEAN CORPUSCULAR HEMOGLOBIN 34 pg (27-31); MEAN CORPUSCULAR HGB CONC 32 % (32-36); MEAN CORPUSCULAR VOLUME 105 fL (79.0-98.0); RED BLOOD CELL COUNT(AUTO) 3.13 MIL/uL (4.2-6.2); RED CELL DISTRIBUTION WIDTH 22.2 % (9.0-15.0); WHITE BLOOD COUNT (AUTO) 12.1 K/uL (4.8-10.8)
[2022-05-23 12:23] LABS: BASOPHILS % (AUTO) 0.4 % (0.0-2.0); EOSINOPHILS % (AUTO) 0.3 % (0.0-4.0); LYMPHOCYTES # (AUTO) 0.8 K/uL (1.0-5.5); MONOCYTES % (AUTO) 8.4 % (1.7-9.3); NEUTROPHILS # (AUTO) 10.1 K/uL (1.8-7.7); NEUTROPHILS % (AUTO) 83.9 % (40.0-70.0); PLATELET COUNT (AUTO) 57 K/uL (130-430)
[2022-05-23 16:17] VITALS: BP_SYST 103
[2022-05-23 20:00] VITALS: BP_SYST 101
[2022-05-23] MEDS: ATORVASTATIN 20 MG TABLET PO SCH (21:17)
[2022-05-23] MEDS: traZODone HCL 50 MG TABLET (DESYREL) PO SCH (21:19)
[2022-05-24 00:48] VITALS: BP_SYST 96
[2022-05-24] MEDS: ALBUTEROL SULFATE 0.083% 2.5 MG/3 ML VIAL.NEB INH SCH ×4 (06:36→19:53)
[2022-05-24 08:20] LABS: BASOPHILS # (AUTO) 0.1 K/uL (0.0-0.2); BASOPHILS % (AUTO) 0.7 % (0.0-2.0); EOSINOPHILS # (AUTO) 0.1 K/uL (0.0-0.4); EOSINOPHILS % (AUTO) 0.6 % (0.0-4.0); HEMATOCRIT 33.1 % (36-54); HEMOGLOBIN 10.7 g/dL (14.0-18.0); LYMPHOCYTES % (AUTO) 6.7 % (20.5-51.5); MEAN CORPUSCULAR HEMOGLOBIN 34 pg (27-31); MEAN CORPUSCULAR HGB CONC 32 % (32-36); MEAN CORPUSCULAR VOLUME 105 fL (79.0-98.0); MONOCYTES % (AUTO) 7.1 % (1.7-9.3); NEUTROPHILS # (AUTO) 12.3 K/uL (1.8-7.7); NEUTROPHILS % (AUTO) 84.9 % (40.0-70.0); PLATELET COUNT (AUTO) 63 K/uL (130-430); RED BLOOD CELL COUNT(AUTO) 3.14 MIL/uL (4.2-6.2); RED CELL DISTRIBUTION WIDTH 22.9 % (9.0-15.0)
[2022-05-24 08:44] VITALS: BP_SYST 99
[2022-05-24 08:46] LABS: WHITE BLOOD COUNT (AUTO) 14.5 K/uL (4.8-10.8)
[2022-05-24] MEDS: CARVEDILOL 12.5 MG TABLET (COREG) PO SCH ×2 (09:00→23:10)
[2022-05-24] MEDS: FUROSEMIDE 80 MG TABLET PO SCH (09:00)
[2022-05-24] MEDS: SEVELAMER CARBONATE 800 MG TABLET PO SCH ×3 (09:21→19:08)
[2022-05-24] MEDS: FERROUS SULFATE 325 MG TABLET.DR PO SCH ×2 (09:21→23:09)
[2022-05-24] MEDS: buPROPion HCL 150 MG XL TAB PO SCH ×2 (09:22→23:10)
[2022-05-24] MEDS: ISOSORBIDE MONONITRATE 30 MG TAB.ER.24H PO SCH (09:22)
[2022-05-24] MEDS: FOLIC ACID 1 MG TABLET PO SCH (09:23)
[2022-05-24] MEDS: NEPHROVITE, (FOLIC ACID/VITAMIN B COMP W-C 1 TAB) PO SCH (09:23)
[2022-05-24] MEDS: MIDODRINE HCL 5 MG TABLET (PROAMATINE) PO SCH ×3 (09:23→23:09)
[2022-05-24 12:17] VITALS: BP_SYST 96
[2022-05-24] MEDS: GLUCOSE (DEXTROSE) ORAL GEL -Adults PO PRN (16:08)
[2022-05-24 16:15] VITALS: BP_SYST 104
[2022-05-24] MEDS ORDERED: VANCOMYCIN HCL 1,000 MG in NS 250 ML IV ONE (17:00)
[2022-05-24] MEDS ORDERED: CEFEPIME 1 GM in D5W 50 ML IV ONE (21:00)
[2022-05-24] MEDS ORDERED: HEPARIN SODIUM,PORCINE 5,000 UNITS/ML VIAL IVP ONE ×2 (21:30)
[2022-05-24] MEDS ORDERED: CEFEPIME 1 GM/VIAL (MAXIPIME) ONE (22:44)
[2022-05-24] MEDS: traZODone HCL 50 MG TABLET (DESYREL) PO SCH (23:09)
[2022-05-24] MEDS: ATORVASTATIN 20 MG TABLET PO SCH (23:09)
[2022-05-25 00:54] VITALS: BP_SYST 97
[2022-05-25] MEDS: ALBUTEROL SULFATE 0.083% 2.5 MG/3 ML VIAL.NEB INH SCH ×4 (07:20→20:34)
[2022-05-25 08:00] VITALS: BP_SYST 134
[2022-05-25] MEDS: FUROSEMIDE 80 MG TABLET PO SCH (09:06)
[2022-05-25] MEDS: CARVEDILOL 12.5 MG TABLET (COREG) PO SCH ×2 (09:07→20:54)
[2022-05-25] MEDS: FOLIC ACID 1 MG TABLET PO SCH (09:07)
[2022-05-25] MEDS: buPROPion HCL 150 MG XL TAB PO SCH ×2 (09:07→20:55)
[2022-05-25] MEDS: NEPHROVITE, (FOLIC ACID/VITAMIN B COMP W-C 1 TAB) PO SCH (09:07)
[2022-05-25] MEDS: SEVELAMER CARBONATE 800 MG TABLET PO SCH ×4 (09:07→18:22)
[2022-05-25] MEDS: ISOSORBIDE MONONITRATE 30 MG TAB.ER.24H PO SCH (09:07)
[2022-05-25] MEDS: MIDODRINE HCL 5 MG TABLET (PROAMATINE) PO SCH ×3 (09:07→20:53)
[2022-05-25] MEDS: FERROUS SULFATE 325 MG TABLET.DR PO SCH ×2 (09:07→20:54)
[2022-05-25 09:30] LABS: BASOPHILS # (AUTO) 0.1 K/uL (0.0-0.2); BASOPHILS % (AUTO) 0.6 % (0.0-2.0); EOSINOPHILS # (AUTO) 0.1 K/uL (0.0-0.4); EOSINOPHILS % (AUTO) 0.6 % (0.0-4.0); HEMATOCRIT 34.3 % (36-54); LYMPHOCYTES # (AUTO) 0.7 K/uL (1.0-5.5); LYMPHOCYTES % (AUTO) 4.1 % (20.5-51.5); MEAN CORPUSCULAR HEMOGLOBIN 34 pg (27-31); MEAN CORPUSCULAR HGB CONC 32 % (32-36); MEAN CORPUSCULAR VOLUME 104 fL (79.0-98.0); MONOCYTES # (AUTO) 0.6 K/uL (0.0-1.0); MONOCYTES % (AUTO) 3.5 % (1.7-9.3); NEUTROPHILS # (AUTO) 15.2 K/uL (1.8-7.7); NEUTROPHILS % (AUTO) 91.2 % (40.0-70.0); RED BLOOD CELL COUNT(AUTO) 3.29 MIL/uL (4.2-6.2); RED CELL DISTRIBUTION WIDTH 22.2 % (9.0-15.0); WHITE BLOOD COUNT (AUTO) 16.7 K/uL (4.8-10.8)
[2022-05-25 09:47] LABS: PLATELET COUNT (AUTO) 41 K/uL (130-430)
[2022-05-25 09:48] LABS: ALBUMIN 2.4 g/dL (3.4-4.8); CALCIUM 8.1 mg/dL (8.4-11.0); CREATININE 4.12 mg/dL (0.55-1.30); PHOSPHORUS 3.1 mg/dL (2.7-4.5); TOTAL BILIRUBIN 2.8 mg/dL (0.0-1.0); VANCOMYCIN,RANDOM 11.7 ug/mL
[2022-05-25 12:00] VITALS: BP_SYST 91
[2022-05-25] MEDS ORDERED: MEGESTROL ACETATE 400 MG/10 ML UDC PO ONE (12:45)
[2022-05-25 16:00] VITALS: BP_SYST 106
[2022-05-25] MEDS ORDERED: VANCOMYCIN HCL 1,000 MG in NS 250 ML IV ONE (17:00)
[2022-05-25 20:00] VITALS: BP_SYST 110
[2022-05-25] MEDS: ATORVASTATIN 20 MG TABLET PO SCH (20:53)
[2022-05-25] MEDS: CEFEPIME 1 GM in D5W 50 ML IV SCH (20:53)
[2022-05-25] MEDS: traZODone HCL 50 MG TABLET (DESYREL) PO SCH (20:54)
[2022-05-25] MEDS ORDERED: MEGESTROL ACETATE 400 MG/10 ML UDC PO SCH (21:00)
[2022-05-26 01:02] VITALS: BP_SYST 90
[2022-05-26 02:26] LABS: BASOPHILS # (AUTO) 0.1 K/uL (0.0-0.2); BASOPHILS % (AUTO) 0.3 % (0.0-2.0); EOSINOPHILS # (AUTO) 0.1 K/uL (0.0-0.4); EOSINOPHILS % (AUTO) 0.6 % (0.0-4.0); HEMATOCRIT 32.4 % (36-54); HEMOGLOBIN 10.4 g/dL (14.0-18.0); LYMPHOCYTES # (AUTO) 0.8 K/uL (1.0-5.5); LYMPHOCYTES % (AUTO) 5.1 % (20.5-51.5); MEAN CORPUSCULAR HEMOGLOBIN 34 pg (27-31); MEAN CORPUSCULAR HGB CONC 32 % (32-36); MEAN CORPUSCULAR VOLUME 106 fL (79.0-98.0); MONOCYTES # (AUTO) 0.7 K/uL (0.0-1.0); MONOCYTES % (AUTO) 4.4 % (1.7-9.3); NEUTROPHILS # (AUTO) 13.7 K/uL (1.8-7.7); NEUTROPHILS % (AUTO) 89.6 % (40.0-70.0); RED BLOOD CELL COUNT(AUTO) 3.07 MIL/uL (4.2-6.2); RED CELL DISTRIBUTION WIDTH 22.2 % (9.0-15.0); WHITE BLOOD COUNT (AUTO) 15.3 K/uL (4.8-10.8)
[2022-05-26 02:41] LABS: PLATELET COUNT (AUTO) 26 K/uL (130-430)
[2022-05-26 02:55] LABS: INR 1.4 (0.80-1.20); PROTHROMBIN TIME 13.8 SECS (9.5-12.5)
[2022-05-26] MEDS: DEXTROSE 50% JECT 50 ML DISP.SYRIN IVP PRN (05:34)
[2022-05-26] MEDS: ALBUTEROL SULFATE 0.083% 2.5 MG/3 ML VIAL.NEB INH SCH ×4 (07:00→23:37)
[2022-05-26 07:30] VITALS: BP_SYST 104; BP_SYST 81
[2022-05-26] MEDS: SEVELAMER CARBONATE 800 MG TABLET PO SCH ×3 (08:00→18:00)
[2022-05-26] MEDS: MIDODRINE HCL 5 MG TABLET (PROAMATINE) PO SCH ×3 (09:00→20:25)
[2022-05-26] MEDS: FUROSEMIDE 80 MG TABLET PO SCH (09:00)
[2022-05-26] MEDS: NEPHROVITE, (FOLIC ACID/VITAMIN B COMP W-C 1 TAB) PO SCH (09:00)
[2022-05-26] MEDS: FERROUS SULFATE 325 MG TABLET.DR PO SCH ×2 (09:00→20:31)
[2022-05-26] MEDS: CARVEDILOL 12.5 MG TABLET (COREG) PO SCH ×2 (09:00→20:25)
[2022-05-26] MEDS: ISOSORBIDE MONONITRATE 30 MG TAB.ER.24H PO SCH (09:00)
[2022-05-26] MEDS: FOLIC ACID 1 MG TABLET PO SCH (09:00)
[2022-05-26 10:29] LABS: BASOPHILS # (AUTO) 0.1 K/uL (0.0-0.2); EOSINOPHILS # (AUTO) 0.1 K/uL (0.0-0.4); HEMOGLOBIN 9.9 g/dL (14.0-18.0); LYMPHOCYTES # (AUTO) 0.8 K/uL (1.0-5.5); MONOCYTES # (AUTO) 0.7 K/uL (0.0-1.0); MONOCYTES % (AUTO) 4.2 % (1.7-9.3)
[2022-05-26 10:37] LABS: BASOPHILS % (AUTO) 0.5 % (0.0-2.0); EOSINOPHILS % (AUTO) 0.8 % (0.0-4.0); HEMATOCRIT 30.9 % (36-54); LYMPHOCYTES % (AUTO) 5.2 % (20.5-51.5); MEAN CORPUSCULAR HEMOGLOBIN 34 pg (27-31); MEAN CORPUSCULAR HGB CONC 32 % (32-36); MEAN CORPUSCULAR VOLUME 105 fL (79.0-98.0); NEUTROPHILS # (AUTO) 14.6 K/uL (1.8-7.7); RED BLOOD CELL COUNT(AUTO) 2.94 MIL/uL (4.2-6.2); RED CELL DISTRIBUTION WIDTH 21.9 % (9.0-15.0); WHITE BLOOD COUNT (AUTO) 16.4 K/uL (4.8-10.8)
[2022-05-26 10:43] LABS: BILIRUBIN,DIRECT 1.6 mg/dL (0.0-0.3)
[2022-05-26 10:47] LABS: PLATELET COUNT (AUTO) 24 K/uL (130-430)
[2022-05-26 11:41] VITALS: BP_SYST 102
[2022-05-26] MEDS ORDERED: DEXTROSE 50% JECT 50 ML DISP.SYRIN IVP ONE (11:45)
[2022-05-26 12:24] LABS: NEUTROPHILS % (AUTO) 89.3 % (40.0-70.0)
[2022-05-26] MEDS ORDERED: methylPREDNISolone SOD SUCC/PF 62.5 MG/ML VIAL IVP ONE (15:30)
[2022-05-26 16:30] VITALS: BP_SYST 100
[2022-05-26 20:00] VITALS: BP_SYST 148
[2022-05-26] MEDS: CEFEPIME 1 GM in D5W 50 ML IV SCH (20:24)
[2022-05-26] MEDS ORDERED: methylPREDNISolone SOD SUCC/PF 62.5 MG/ML VIAL IVP SCH (22:00)
[2022-05-27] MEDS ORDERED: SODIUM BICARBONATE 8.4% JECT 50 MEQ/50 ML SYRINGE ONE
[2022-05-27] MEDS ORDERED: EPINEPHrine JECT 0.1 MG/ML SYR ONE
[2022-05-27] MEDS ORDERED: CALCIUM CHLORIDE 1 GM/10 ML DISP.SYRIN (14 mEq Ca++/SYR) ONE
[2022-05-27] MEDS ORDERED: NS 1000 ML IV.SOLN IV ONE
== END 2022-05-27 02:00 | DRG 871 ==
LOC: SED 11:58 → STU 13:59
PROVIDERS: ADMIT Family Medicine; ATTEND Family Medicine
PROC: 30233R1 Transfusion of Nonautologous Platelets into Peripheral Vein, Percutaneous Approach (ICD-10-PCS; 2022-05-12)
PROC: 5A1D70Z Performance of Urinary Filtration, Intermittent, Less than 6 Hours Per Day (ICD-10-PCS; 2022-05-12)
PROC: 5A1D70Z Performance of Urinary Filtration, Intermittent, Less than 6 Hours Per Day (ICD-10-PCS; 2022-05-13)
PROC: 05H433Z Insertion of Infusion Device into Left Innominate Vein, Percutaneous Approach (ICD-10-PCS; 2022-05-15)
PROC: B54NZZA Ultrasonography of Left Upper Extremity Veins, Guidance (ICD-10-PCS; 2022-05-15)
PROC: 5A1D70Z Performance of Urinary Filtration, Intermittent, Less than 6 Hours Per Day (ICD-10-PCS; 2022-05-15)
PROC: 06HY33Z Insertion of Infusion Device into Lower Vein, Percutaneous Approach (ICD-10-PCS; 2022-05-18)
PROC: B54BZZA Ultrasonography of Right Lower Extremity Veins, Guidance (ICD-10-PCS; 2022-05-18)
PROC: 5A1D70Z Performance of Urinary Filtration, Intermittent, Less than 6 Hours Per Day (ICD-10-PCS; 2022-05-18)
PROC: 05PYX3Z Removal of Infusion Device from Upper Vein, External Approach (ICD-10-PCS; 2022-05-19)
PROC: 0JH63XZ Insertion of Tunneled Vascular Access Device into Chest Subcutaneous Tissue and Fascia, Percutaneous Approach (ICD-10-PCS; 2022-05-19)
PROC: 02HV33Z Insertion of Infusion Device into Superior Vena Cava, Percutaneous Approach (ICD-10-PCS; 2022-05-19)
PROC: B518ZZA Fluoroscopy of Superior Vena Cava, Guidance (ICD-10-PCS; 2022-05-19)
PROC: 5A1D70Z Performance of Urinary Filtration, Intermittent, Less than 6 Hours Per Day (ICD-10-PCS; 2022-05-20)
PROC: 5A1D70Z Performance of Urinary Filtration, Intermittent, Less than 6 Hours Per Day (ICD-10-PCS; 2022-05-22)
PROC: 5A1D70Z Performance of Urinary Filtration, Intermittent, Less than 6 Hours Per Day (ICD-10-PCS; 2022-05-24)
PROC: 5A1D70Z Performance of Urinary Filtration, Intermittent, Less than 6 Hours Per Day (ICD-10-PCS; 2022-05-26)
PROC: 5A12012 Performance of Cardiac Output, Single, Manual (ICD-10-PCS; principal; 2022-05-27)
DX: A41.9 Sepsis, unspecified organism (principal); G92.8 Other toxic encephalopathy; I62.01 Nontraumatic acute subdural hemorrhage; N18.6 End stage renal disease; I62.03 Nontraumatic chronic subdural hemorrhage; J18.9 Pneumonia, unspecified organism; N17.9 Acute kidney failure, unspecified; E87.1 Hypo-osmolality and hyponatremia; I42.9 Cardiomyopathy, unspecified; E46 Unspecified protein-calorie malnutrition; I13.2 Hypertensive heart and chronic kidney disease with heart failure and with stage 5 chronic kidney disease, or end stage renal disease; N25.81 Secondary hyperparathyroidism of renal origin; T82.524A Displacement of infusion catheter, initial encounter; I46.9 Cardiac arrest, cause unspecified; Z66 Do not resuscitate; E11.649 Type 2 diabetes mellitus with hypoglycemia without coma; D69.6 Thrombocytopenia, unspecified; I25.10 Atherosclerotic heart disease of native coronary artery without angina pectoris; E11.65 Type 2 diabetes mellitus with hyperglycemia; E83.39 Other disorders of phosphorus metabolism; E83.41 Hypermagnesemia; E83.52 Hypercalcemia; F32.A Depression, unspecified; Z20.822 Contact with and (suspected) exposure to COVID-19; D63.1 Anemia in chronic kidney disease; S09.90XA Unspecified injury of head, initial encounter; X58.XXXA Exposure to other specified factors, initial encounter; I48.91 Unspecified atrial fibrillation; K80.20 Calculus of gallbladder without cholecystitis without obstruction; Y83.8 Other surgical procedures as the cause of abnormal reaction of the patient, or of later complication, without mention of misadventure at the time of the procedure; I50.9 Heart failure, unspecified; E53.8 Deficiency of other specified B group vitamins; E11.22 Type 2 diabetes mellitus with diabetic chronic kidney disease; Z79.82 Long term (current) use of aspirin; Z79.899 Other long term (current) drug therapy; Z88.0 Allergy status to penicillin; Z88.8 Allergy status to other drugs, medicaments and biological substances; Z99.2 Dependence on renal dialysis; Z86.73 Personal history of transient ischemic attack (TIA), and cerebral infarction without residual deficits; Y93.89 Activity, other specified; Y92.89 Other specified places as the place of occurrence of the external cause; Y99.8 Other external cause status; Z68.22 Body mass index [BMI] 22.0-22.9, adult; T38.3X5A Adverse effect of insulin and oral hypoglycemic [antidiabetic] drugs, initial encounter
CPT/HCPCS: 36415; 36600; 70450-TC; 71045; 72170-TC; 76000; 76376; 76700-TC; 80048; 80053; 80202; 81000; 82247; 82248; 82272; 82607; 82728; 82746; 82803-TC; 82962; 83540; 83550; 83735; 84100; 85025; 85610-TC; 85651-TC; 85730-TC; 86022; 86140; 86870; 86886; 86900; 86901; 87040; 87086; 90935; 90937; 92610-GN; 92950; 93005; 93970; 94640; 94760; 97110-GP; 97112-GP; 97116-GP; 97163-GP; 97530-GP; 99285; C1751; C1894; G0378; J0171; J0692; J1100; J1644; J2930; J2997; J3370; J3490; J7030; J7040; J7050; J7060; J7120; J7613; P9034